=== PATIENT | male | born 1975 | race Caucasian/White ===

== ENCOUNTER 2018-03-06 15:44 | Emergency (ER) | payer BC ==
[~2018-03-06] VITALS: Ht 167.6 cm; Wt 81.6 kg
[2018-03-06 15:52] VITALS: BP_SYST 144
[2018-03-06] MEDS ORDERED: DIPHENHYDRAMINE HCL 25 MG CAPSULE PO ONE (16:15)
[2018-03-06 16:40] VITALS: BP_SYST 126
== END 2018-03-06 16:40 | disposition home or self-care (01) ==
LOC: SED 15:44
DX: S40.862A Insect bite (nonvenomous) of left upper arm, initial encounter (principal); S40.861A Insect bite (nonvenomous) of right upper arm, initial encounter; J44.9 Chronic obstructive pulmonary disease, unspecified; W57.XXXA Bitten or stung by nonvenomous insect and other nonvenomous arthropods, initial encounter; Y93.89 Activity, other specified; Y92.89 Other specified places as the place of occurrence of the external cause; Y99.8 Other external cause status
CPT/HCPCS: 99282; Q0163

== ENCOUNTER 2021-08-02 00:46 | Emergency (ER) | payer BC, SELFPAY ==
[~2021-08-02] VITALS: Ht 167.6 cm; Wt 84.8 kg
[2021-08-02 01:00] VITALS: BP_SYST 102
--- NOTE | 2021-08-02 01:00 | NUR ---
Patient triaged and placed in tent. VSS and patient appears in no acute distress at this time. Accompanied by spouse , awaiting available bed, and MD notified of need for MSE.
--- NOTE | 2021-08-02 01:30 | NUR ---
PATIENT AAOX4 AND AMBULATORY FROM HOME C/O COUGH, BODY ACHES, HEADACHE, BLURRED VISION, +DIARRHEA. PT STATED HE TESTED POSITIVE FOR COVID X10 DAYS AGO. VSS. OXYGENATION AT 94% ROOM AIR. PT STATED SYMPTOMS STARTED ON THURSDAY. CURRENTLY STATING 5/10 ON THE PAIN SCALE. DENIES ANY SOB OR CHEST PAIN AT THIS.
--- NOTE | 2021-08-02 02:20 | NUR ---
ER Dr. ALVAREZ at bedside examining patient.
[2021-08-02] MEDS ORDERED: ZIT250 PO (03:50)
[2021-08-02 04:00] VITALS: BP_SYST 102
[2021-08-02] MEDS ORDERED: AZITHROMYCIN 250 MG TABLET PO ONE (04:00)
--- NOTE | 2021-08-02 04:00 | NUR ---
Patient given written and verbal discharge instructions and verbalizes understanding. DR. ANTONIO DURHAM MD discussed with patient the results and treatment provided. Patient in stable condition. ID arm band removed. Rx of ZITHROMAX given. Patient educated on pain management and to follow up with PMD. Pain Scale . Opportunity for questions provided and answered. Medication side effect fact sheet provided.
== END 2021-08-02 04:00 | disposition home or self-care (01) ==
LOC: SED 00:46
DX: J18.9 Pneumonia, unspecified organism (principal); R05.9 Cough, unspecified; J44.9 Chronic obstructive pulmonary disease, unspecified
CPT/HCPCS: 71045; 86710; 87426; 99284; Q0144; 36415; 99285

== ENCOUNTER 2022-07-23 10:33 | Emergency (ER) | payer BC ==
[~2022-07-23] VITALS: Ht 167.6 cm; Wt 85.3 kg
[2022-07-23 10:33] VITALS: BP_SYST 153
[~2022-07-23 10:33] MED LIST: ZIT250 PO
[2022-07-23 12:52] VITALS: BP_SYST 130
== END 2022-07-23 12:53 | disposition home or self-care (01) ==
LOC: SED 10:33
DX: S86.111A Strain of other muscle(s) and tendon(s) of posterior muscle group at lower leg level, right leg, initial encounter (principal); J44.9 Chronic obstructive pulmonary disease, unspecified; Z79.899 Other long term (current) drug therapy; X58.XXXA Exposure to other specified factors, initial encounter; Y93.89 Activity, other specified; Y92.89 Other specified places as the place of occurrence of the external cause; Y99.8 Other external cause status
CPT/HCPCS: 93971; 99284